=== PATIENT | female | born 1945 | race African-American/Black ===

== ENCOUNTER 2016-07-29 10:23 | Inpatient (IN) | payer MEDICARE ==
--- NOTE | ~2016-07-29 | EKG ---
PATIENT: KODY KAPOOR UNIT #: [id number] Ventricular Rate: 106 BPM Atrial Rate: 106 BPM P-R Interval: 152 ms QRS Duration: 62 ms Q-T Interval: 332 ms QTC Calculation(Bezet): 441 ms P [place]: 63 degrees Calculated R [place]: 48 degrees Calculated T [place]: 70 degrees Diagnosis Line: Sinus tachycardia Diagnosis Line: Low voltage QRS Diagnosis Line: Cannot rule out Anterior infarct , age Diagnosis Line: undetermined Diagnosis Line: Abnormal ECG Diagnosis Line: No previous ECGs available Diagnosis Line: Confirmed by BRADLEY HERNANDEZ MD ([id number]) on 07/29/2016 Diagnosis Line: 10:21:30 PM INTERPRETING MD: MARY ANGULO
--- NOTE | ~2016-07-29 | CR72 ---
[facility] A Service of [facility] RADIOLOGY TEXT RESULTS PATIENT: KODY KAPOOR LOCATION: [address]05-09 : [birth year] UNIT #: [id number] AGE: [address]: Rufus Cooley MD SEX: F ORDER DR: [id number] [facility] [address]. [place], [place] [address] [id number] I MR#: [id number] Acc #: [id number] NAME: KODY KAPOOR : 1945 SEX: F STUDY DATE/TIME: 07/30/2016 4:34 UNIT: [facility] ROOM: [facility] STUDY DESCRIPTION: CR Chest Single View Portable Attending Physician: Shantelle Heart M.D. Ordering Physician: Shantelle Heart M.D. Primary Care Physician: [facility] MEDICAL IMAGING REPORT This report is preliminary unless electronic signature is present EXAM AP portable chest 07/30/2016 HISTORY Lung cancer. Shortness of air and cough. Follow up cardiopulmonary status. FINDINGS Left side chest drain is in place, there is no visible pneumothorax. Patchy infiltrate throughout both lungs and probable bilateral pleural effusions. Chronic opacification and volume loss at the left lung apex likely representing post treatment changes from the patient's history of known lung cancer, best seen on an older exam performed on 08/04/2014. Central venous port catheter in good position. No significant change since yesterday. IMPRESSION Stable portable chest radiograph, unchanged since yesterday. Dictated by... Brian Kohler M.D. THIS IS AN ELECTRONICALLY VERIFIED REPORT Brian Kohler M.D. at 07/30/2016 9:53 PM ISRAEL/felicitas TD: 07/30/2016 06:54 JOB #: [id number] MEDICAL IMAGING REPORT Page 1 of 1 COPY
--- NOTE | ~2016-07-29 | DS ---
Unit #: [id number] #: [id number] Patient: KODY KAPOOR [id number] [address] [place], [place] [address] [id number] I MR#: [id number] NAME: KODY KAPOOR ROOM: 569 Age: 70 Sex: F Admission Date: 07/29/2016 : 1945 Discharge Date: 08/02/2016 Attending Physician: Rufus Cooley M.D. Primary Care Physician: [facility] DISCHARGE SUMMARY ADMITTING DIAGNOSES 1. Shortness of breath. 2. Acute hypoxic respiratory failure. 3. Sepsis with pseudomonas pneumonia. 4. Metastatic uiu-npjsd-ymxf lung carcinoma. 5. History of recurrent pleural effusions with Pleurx catheter in place. 6. History of chronic obstructive pulmonary disease. 7. History of lung cancer. 8. History of malnutrition, mild to moderate. CONSULTANTS Dr. Bonds. HISTORY OF PRESENT ILLNESS The patient is a 70-year-old lady with a past medical history of metastatic spx-fmjwi-ilnf lung cancer carcinoma of the lung, history of chronic obstructive pulmonary disease, recurrent pleural effusions and anemia. The patient usually goes to the [facility]. She was brought to the emergency room on the with an acute episode of shortness of breath. HOSPITAL COURSE Initially she was on a 100% nonrebreather mask and was found to have bilateral airspace opacities on the imaging. She was started on antimicrobials for healthcare associated pneumonia. She was initially admitted to the ICU and gradually was clinically improving. She was moved to telemetry. She is still on antimicrobials and her oxygen requirements have come down to baseline of 3 liters. She is a full code. Dr. Bonds evaluated the patient in the hospital course and she is doing clinically better. She is eager to go home. Will request for her to follow up with oncology at the [facility] as an outpatient. Because of the pseudomonas she will be on IV cefepime for a total of 10 days. PHYSICAL EXAMINATION VITALS: On the day of discharge, temperature 98.2, pulse 79, respiratory rate 18, blood pressure 111/61. GENERAL: The patient is thin, alert, and oriented times three. HEENT: Normocephalic, atraumatic. No icterus. Pupils equally round and reactive to light and accommodation. Extraocular muscles intact. NECK: Supple. No jugular venous distension. HEART: S1 and S2. Regular rate and rhythm. CHEST: Bilateral equal entry. Bilateral equal rhonchi. She does have Unit #: [id number] #: [id number] Patient: KODY KAPOOR bilateral Pleurx catheters in place. ABDOMEN: Soft and nontender. EXTREMITIES: No edema. Normal pulses. SKIN: She does have a port in place. DISCHARGE MEDICATIONS 1. Cefepime 2 g IV q.12 h. for a total of 10 days. 2. Spiriva 18 mcg inhalation daily. 3. Claritin 10 mg daily. 4. Protein supplement required 60 ml b.i.d. 5. Metoprolol 25 mg p.o. daily. 6. Lasix 20 mg daily. 7. Probiotic 50 mg p.o. b.i.d. 8. Protonix 40 mg daily. 9. Albuterol inhalation q.i.d. 10. ProAir 1 puff q.i.d. 11. Tylenol p.r.n. 12. Flunisolide 2 puffs b.i.d. 13. Medrol Dosepak. FOLLOWUP She is instructed to follow up with oncology and with pulmonary as an outpatient. Total time spent in her care 35 minutes. Dictated by..Pernell Sneed TD: 08/02/2016 13:31 JOB #: [id number] DISCHARGE SUMMARY Page 1 of 1 X X DISCHARGE SUMMARY
--- NOTE | ~2016-07-29 | US84 ---
[id number] [facility] [address] [place], [place] [address] [id number] I MR#: [id number] Acc #: [id number] NAME: KODY KAPOOR : 1945 SEX: F STUDY DATE/TIME: 07/31/2016 18:48 UNIT: [facility] ROOM: 569 STUDY DESCRIPTION: US LE Veins Complete Julian Stdy Attending Physician: Rufus Cooley M.D. Ordering Physician: Rufus Cooley M.D. Primary Care Physician: [facility] MEDICAL IMAGING REPORT This report is preliminary unless electronic signature is present EXAM Bilateral lower extremity venous ultrasound. HISTORY Shortness of air for 4 days. TECHNIQUE Venous ultrasound examination of both lower extremities was performed using grayscale, spectral Doppler and color flow Doppler imaging. FINDINGS The examination is negative. There is no evidence of deep venous thrombus from the groin to the lower calf bilaterally. Visualized greater saphenous veins are also patent. IMPRESSION Negative examination. No evidence of lower extremity DVT. Dictated by... Dread Horn M.D. THIS IS AN ELECTRONICALLY VERIFIED REPORT Dread Horn M.D. at 08/01/2016 8:50 PM HEIDY/vladimir TD: 07/31/2016 21:48 JOB #: [id number] MEDICAL IMAGING REPORT Page 1 of 1 COPY
--- NOTE | ~2016-07-29 | CT15 ---
[facility] A Service of [facility] RADIOLOGY TEXT RESULTS PATIENT: KODY KAPOOR LOCATION: [facility] 5612-06 : [birth year] UNIT #: [id number] AGE: [address]: Rufus Cooley MD SEX: F ORDER DR: [id number] [facility] [address] [place], [place] [address] [id number] I MR#: [id number] Acc #: [id number] NAME: KODY KAPOOR : 1945 SEX: F STUDY DATE/TIME: 07/31/2016 9:25 UNIT: [facility] ROOM: [facility] STUDY DESCRIPTION: CT Angio Chest Attending Physician: Rufus Cooley M.D. Ordering Physician: Casper Bonds M.D. Primary Care Physician: [facility] MEDICAL IMAGING REPORT This report is preliminary unless electronic signature is present EXAM Chest CT angiogram with contrast DATE OF EXAMINATION 07/31/2016 PROCEDURE Axial contrast enhanced chest CT angiogram with [address] exam was performed with one or more of the following radiation dose reduction techniques: automatic exposure control, adjustment of mA and/or kV according to patient size, and iterative reconstruction. HISTORY Short of air and wheezing and cough for 2 days. COMPARISON STUDIES Chest CT angiogram dated 12/12/2009 FINDINGS There are extensive coarse pulmonary infiltrates and areas of consolidation. There is also some fluid partially loculated in the right major and minor fissures. There is a small to moderate pericardial effusion. The thoracic aorta is normal in caliber. Pulmonary arteries are well opacified and there is no evidence of pulmonary embolism. There is mild to moderate narrowing at or just beyond the celiac origin. Right renal artery origin is normal and the left is not included on the exam. Great vessel origins from the arch are widely patent. IMPRESSION [facility] A Service of [facility] RADIOLOGY TEXT RESULTS PATIENT: KODY KAPOOR LOCATION: [facility] 5612-06 : [birth year] UNIT #: [id number] AGE: [address]: Rufus Cooley MD SEX: F ORDER DR: 1. While there are extensive pulmonary parenchymal changes the thoracic aorta is normal in caliber and there is no evidence of pulmonary embolism. 2. Chronic left hilar mass/deformity with what appears to be left upper lobe chronic post obstructive change, similar to what was seen in July 2014, is redemonstrated, and there are extensive changes in the right lung with areas of interstitial infiltrate and even mass like consolidation in the apex, as well as a right hilar mass measuring about 1.9 x 1.5 cm. There is also fluid loculated in the right major and minor fissure and there are coarse infiltrative changes in the lung bases bilaterally. Given the lack of interval CT examinations of the chest, it is unclear to what degree the changes are acute or chronic. Again, the thoracic aorta is normal. The branch vessels are widely patent though in the upper abdomen there is moderate stenosis at the celiac origin. There is also moderate narrowing of the left main pulmonary artery but that appears to be a chronic finding as well. There is no pneumothorax. There is no acute bony abnormality. Dictated by... Rishabh Rooney M.D. THIS IS AN ELECTRONICALLY VERIFIED REPORT Rishabh Rooney M.D. at 08/01/2016 3:51 PM SAUL/morelia TD: 07/31/2016 17:34 JOB #: [id number] MEDICAL IMAGING REPORT Page 1 of 1 COPY
--- NOTE | ~2016-07-29 | CO ---
Unit #: [id number] #: [id number] Patient: KODY KAPOOR [id number] [address] [place], [place] [address] [id number] I MR#: [id number] NAME: KODY KAPOOR ROOM: [facility] Age: 70 Sex: F Admission Date: 07/29/2016 : 1945 Attending Physician: Shantelle Heart M.D. Primary Care Physician: [facility] CONSULTATION REPORT JOB NOTE: CC: [facility], [facility]. REASON FOR CONSULTATION Respiratory failure. HISTORY OF PRESENT ILLNESS The patient is a 70-year-old female, who looks older than stated age, who has a history of metastatic non-small cell carcinoma of the lung, treated at [facility]. Apparently, she has undergone relatively recent treatment including chemotherapy about 6 weeks ago. She has known bilateral malignant pleural effusions with bilateral PleurX catheters in. According to the EHR, she presented with 2- to 3-day history of shortness of breath and cough. Saturations were quite low on her 3 L that she was apparently on at the group home. She currently is on mask ventilation. It is difficult for her to answer questions, but I am not sure if her history would be reliable. She has had shortness of breath, some cough. She nods yes to wheezing. She denies sputum production, fever, chest pain, or hemoptysis, but again history is somewhat difficult to obtain. PAST MEDICAL HISTORY Remarkable for apparent recent pneumonia 3 or 4 weeks ago in [facility]; chronic respiratory failure, on 2 to 3 L; metastatic non-small cell carcinoma of lung, status post radiation and chemotherapy with bilateral PleurX catheters for malignant effusions; history of COPD; chronic anemia. MEDICATIONS According to the med rec sheet include Claritin, metoprolol, Lasix, potassium, Spiriva, albuterol, ProMod protein supplement, nasal sprays, probiotics, Mini-nebs, and inhaled bronchodilators. ALLERGIES Penicillin, clindamycin, ciprofloxacin, unknown reaction. SOCIAL HISTORY Quit smoking a few weeks ago. FAMILY HISTORY According to the EHR, no familial lung disease. REVIEW OF SYSTEMS Basically, it is unobtainable in a reliable fashion. She does ask when she can eat. She denied chest pain, abdominal pain, melena, hematochezia, leg pain, swelling, but again very difficult to obtain a review of systems. Unit #: [id number] #: [id number] Patient: KODY KAPOOR PHYSICAL EXAMINATION VITAL SIGNS: Reveals a patient who is afebrile, pulse 90, respiratory rate is 24, blood pressure is 99/73. She is 5 feet 1 inch and 129 pounds. HEENT: Pupils equal, round, and reactive to light. Sclerae anicteric. Head atraumatic. NECK: Supple. She is bald. Jugular venous pressures appear to be increased. CHEST: Expiratory rhonchi. No definite consolidation. Posterior auscultation not performed. CARDIAC: Reveals regular rate and rhythm. Distant heart tones. No murmur, rub, or gallop. ABDOMEN: Soft and nontender. No hepatomegaly or rebound. EXTREMITIES: Reveal no clubbing, cyanosis. There is 2+ edema. No calf tenderness. SKIN: Warm and dry without rash or diaphoresis. NEUROLOGIC: No definite focal motor or sensory deficits, but she did not cooperate with a full neurologic exam. DIAGNOSTIC STUDIES LABORATORY RESULTS: Arterial blood gas; pH is 7.33, pCO2 of 71, pO2 of 93 on a non-rebreather. Her BUN is 10, creatinine is 0.3, magnesium 1.5. Procalcitonin is only 0.07. Lactic acid 0.7. I did not see a BNP. INR was normal. Cardiac enzymes normal. White blood cell count 8.9, hemoglobin 10.1, platelet count 285. Blood cultures performed and are pending. CARDIOVASCULAR STUDIES: EKG; sinus tachycardia, nonspecific ST-T wave changes. Chest x-ray; bilateral interstitial mcclain, bilateral pleural effusions, possible fluid in the fissure on the right, cannot rule out mass. IMPRESSION 1. Respiratory failure, acute on chronic, not convinced she has pneumonia. No fever, leukocytosis, or elevated procalcitonin level. 2. Abnormal chest x-ray consistent with congestive heart failure. 3. Bilateral pleural effusions, known to be malignant, possible component of heart failure. 4. Metastatic non-small cell carcinoma of the lung. 5. Chronic obstructive pulmonary disease. 6. Anemia. 7. Hypomagnesemia and medical problems listed above. PLAN Overall prognosis is guarded. Continue noninvasive mask ventilation for now, treatment of her COPD with steroids, nebulized bronchodilators. Antibiotics for now for pneumonia, but I will discontinue her tobramycin. I am not convinced that she has pneumonia and I do not think she is at increased pseudomonas risk. Trial of diuretics and re-evaluate in the morning. Given her metastatic cancer, I would consider goals of care and DNR status. Thank you very much for allowing me to participate in the care of Ms. Kapoor. Dictated by... Casper Bonds M.D. Unit #: [id number] #: [id number] Patient: KODY KAPOOR CHARLEY/lilianel TD: 07/30/2016 01:31 JOB #: [id number] CONSULTATION REPORT Page 1 of 1 X Casper Bonds MD X CONSULTATION REPORT
--- NOTE | ~2016-07-29 | HP ---
Unit #: [id number] #: [id number] Patient: KODY KAPOOR [id number] [facility] [address] [place], [place] [address] [id number] MR#: [id number] NAME: KODY KAPOOR ROOM: Age: 70 Sex: F Admission Date: 07/29/2016 : 1945 Attending Physician: Elvis Lyles M.D. Primary Care Physician: Arlen Dixon [facility] HISTORY AND PHYSICAL CHIEF COMPLAINT Short of air. HISTORY OF PRESENT ILLNESS The patient is a 70-year-old female with past medical history of metastatic non-small cell carcinoma of the lung, COPD, recurrent pleural effusions and anemia who presented to the emergency department from the [facility] for evaluation of the above. The patient has apparently had a 2- to 3-day history of increasing shortness of breath and productive cough. She denies any chest pain. No fever. She states that her appetite has been okay. She denies any vomiting or diarrhea. No urinary symptoms. The patient's oxygen saturations were reportedly 78% on 3 liters at the [facility]. Upon arrival in the emergency department, the patient's oxygen saturation was 100% on 100% non-rebreather, pulse 108, respirations 28. Chest x-ray shows diffuse bilateral airspace changes with moderate bilateral pleural effusions. She was given cefepime, tobramycin and vancomycin in the emergency department, as well as Solu-Medrol. She is being admitted to [facility] for evaluation and further treatment. PAST MEDICAL HISTORY 1. Admission to [facility] 3-4 weeks ago for pneumonia (no records). 2. Chronic respiratory failure, on 2-3 liters of oxygen per nasal cannula continuous. 3. History of metastatic non-small cell lung cancer status post radiation and chemotherapy. The patient's son, who is at bedside, thinks that her last chemotherapy was about 6 weeks ago. Last radiation was possibly more than a year ago. She is followed by the [facility]. The patient has had recurrent malignant effusions and had bilateral Pleurx catheters in the past. 4. COPD. 5. Chronic anemia. PAST SURGICAL HISTORY 1. Port placement. 2. . SOCIAL HISTORY The patient currently is at rehab. She quit smoking a few weeks ago. CODE STATUS Unit #: [id number] #: [id number] Patient: KODY KAPOOR Full code. FAMILY HISTORY Notable for there being no familial lung disease. ALLERGIES Penicillin, clindamycin, ciprofloxacin. HOME MEDICATIONS 1. Claritin 10 mg daily. 2. Metoprolol 25 mg daily. 3. Lasix 20 mg daily. 4. Potassium 10 mEq daily. 5. Spiriva inhaled daily. 6. Albuterol inhaled q.i.d. 7. Protein supplement b.i.d. 8. Flunisolide 2 puffs nasally b.i.d. 9. Probiotic 250 mg b.i.d. 10. Tylenol 650 q.6 hours p.r.n. 11. DuoNeb q.4 hours p.r.n. 12. Albuterol q.i.d. REVIEW OF SYSTEMS A complete review of systems is negative except as indicated in the HPI. PHYSICAL EXAMINATION VITAL SIGNS: Temperature is 98, pulse 108, respirations 28, blood pressure 128/87, oxygen saturation 100% on 100% non-rebreather. Saturations were reportedly 78% on 3 liters at the [facility]. GENERAL: The patient is an female who is sleeping but wakes to physical stimuli. HEENT: The head is atraumatic. Mucous membranes are moist. NECK: Supple. Trachea is midline. CARDIOVASCULAR: Tachycardic in the one-teens. RESPIRATORY: Lungs demonstrate scattered crackles and rhonchi. Breathing is mildly labored. She is currently on 100% non-rebreather. ABDOMEN: Soft, nontender with bowel sounds present in all 4 quadrants. EXTREMITIES: Extremities are nontender with no pedal edema. NEUROLOGIC: The patient is oriented to person and place. She is unable to tell me the year. The patient follows commands. PSYCHIATRIC: Mood and affect are normal. The patient is cooperative. SKIN: Skin of examined areas is warm and dry. DIAGNOSTIC TESTS CARDIOVASCULAR: EKG shows sinus tachycardia with a rate of 106 beats per minute. IMAGING: Chest x-ray shows cardiomegaly with diffuse bilateral airspace changes and moderate bilateral pleural effusions. LABORATORY: INR is 1.1. Complete blood count notable for hemoglobin and hematocrit of 10.1 and 32.6 respectively. Troponin is less than 0.05. Lactic acid is 0.5. Comprehensive metabolic panel notable for chloride of 96, bicarb 35, glucose 139, alkaline phosphatase 98, albumin 2.8. Amylase and lipase are normal. Magnesium is 1.5. ASSESSMENT 1. The patient is a 70-year-old female with acute on chronic respiratory Unit #: [id number] #: [id number] Patient: KODY KAPOOR failure. 2. Healthcare-associated pneumonia. The patient received vancomycin, tobramycin and cefepime in the emergency department. 3. History of metastatic non-small cell lung cancer with last chemotherapy approximately 6 weeks ago, followed by the [facility]. 4. Bilateral pleural effusions. The patient has a history of recurrent malignant pleural effusion and has had Pleurx catheter in the past 5. COPD exacerbation. The patient received Solu-Medrol in the emergency department. 6. Hypomagnesemia. 7. Normocytic anemia. The patient's hemoglobin is 10.1 today with no baseline for comparison. 8. Former smoker. Immobility. The patient is currently in rehab. PLAN 1. Admit to intermediate level. 2. NPO until stable. 3. Check ABG. 4. Consult Dr. Bonds regarding acute on chronic respiratory failure. 5. Blood cultures x2. 6. Sputum culture and sensitivity. 7. Procalcitonin level. 8. Streptococcal and Legionella urine antigens. 9. Sepsis protocol with repeat lactic acid. 10. Vancomycin IV, tobramycin IV and cefepime IV for healthcare-associated pneumonia pending further workup. 11. DuoNeb q.4 hours while awake and q.2 hours p.r.n. 12. Solu-Medrol 80 mg IV q.12 hours. 13. Get records from [facility]. 14. Potassium/magnesium protocol. 15. Serial cardiac enzymes. 16. Neuro checks. 17. Fall precautions. 18. Protonix for GI prophylaxis since the patient will be on Solu-Medrol. 19. SCDs for DVT prophylaxis. 20. Repeat labs in the morning, including magnesium. 21. Additional workup and consultants based on above. 22. Regarding code status, the patient is a full code. Dictated by Pernell Jennings/aislinn TD: 07/29/2016 13:13 JOB #: [id number] Unit #: [id number] #: [id number] Patient: BESSIESHAKEELDAVIDKODY HISTORY AND PHYSICAL Page 1 of 1 X Shantelle Heart MD X HISTORY AND PHYSICAL
[2016-07-29 09:42] LABS: BASOPHIL% 0.4 % (0-2.5); EOSINOPHIL% 0.1 % (0.0-7.0); HEMATOCRIT 32.6 % (35.0-45.0); HEMOGLOBIN 10.1 gm/dL (12.0-16.0); LYMPHOCYTE# 0.3 X10e3 (1.0-3.5); LYMPHOCYTE% 3.6 % (17.0-45.0); MEAN CELL VOLUME 83.7 FL (83-96); MEAN CORPUSCULAR HGB CONC 31.1 g/dL (30-36); MEAN PLATELET VOLUME 7.4 FL (6.5-11.5); MONOCYTE# 0.6 X10e3 (0-1.0); MONOCYTE% 6.8 % (3.0-12.0); NEUTROPHIL# 7.9 X10e3 (1.5-7.1); NEUTROPHIL% 89.1 % (40-75); PLATELET COUNT 285 X10e3 (140-420); WHITE BLOOD COUNT 8.9 X10e3 (4.0-10.5)
[2016-07-29 09:49] LABS: DIFF IND NO
[2016-07-29 09:56] LABS: POC - CKMB 1.5 ng/mL (0.0-7.9); POC - TROPONIN <0.05 ng/mL (<=0.05)
[2016-07-29 09:57] LABS: INR 1.1; PARTIAL THROMBOPLASTIN TIME 26.6 SECONDS (23.5-31.3); PROTHROMBIN TIME (PATIENT) 11.4 SECONDS (9.6-11.5)
[2016-07-29 10:08] LABS: ALBUMIN SERUM 2.7 g/dL (3.5-5.0); ALKALINE PHOSPHATASE 98 U/L (32-92); ALT (SGPT) 12 U/L (10-40); AMYLASE 11 U/L (0-46); AST (SGOT) 15 U/L (10-42); BILIRUBIN, DIRECT <0.1 mg/dL (0.0-0.2); BILIRUBIN,INDIRECT 0.2 mg/dL (0.0-0.9); BILIRUBIN,TOTAL 0.3 mg/dL (0.2-2.0); BLOOD UREA NITROGEN 10 mg/dL (9-23); BUN/CREATININE RATIO 33.33; CALCIUM SERUM 8.6 mg/dL (8.4-10.2); CARBON DIOXIDE 35 mmol/L (22-31); CHLORIDE 96 mmol/L (100-111); CREATININE SERUM 0.3 mg/dL (0.6-1.4); GLOM FILT RATE Estimated 117.7 mL/min (>60); GLUCOSE FASTING 139 mg/dL (70-110); LIPASE 12 U/L (22-51); MAGNESIUM 1.5 mg/dL (1.6-3.0); PHOSPHOROUS 4.5 mg/dL (2.5-4.6); POTASSIUM 4.1 mmol/L (3.5-5.1); PROTEIN TOTAL SERUM 6.8 g/dL (6.0-8.3); SODIUM 139 mmol/L (135-145)
[~2016-07-29 10:23] MED LIST: ALBUTEROL2.5 MG/3 M INH; CLARITIN10 M3 PO; FLUNISOLIDE25 ML; LASIX20 MG PO; METOPROLOL SUCC25 MG PO; POTASSIUM CHLO10 MEQ PO; PROMOD946 ML PO; SPIRIVA18 MCG INH
[2016-07-29] MEDS ORDERED: TYLENOL325 M1 PO (11:30)
[2016-07-29] MEDS ORDERED: PROBIOTIC250 MG PO (11:30)
[2016-07-29] MEDS ORDERED: IPRATR-ALBUTEROL3 ML INH (11:32)
[2016-07-29] MEDS ORDERED: PROAIR RESPICL90 MCG INH (11:33)
[2016-07-29 11:39] LABS: POC - CKMB 2.2 ng/mL (0.0-7.9); POC - TROPONIN <0.05 ng/mL (<=0.05)
[2016-07-29 13:13] LABS: ARTERIAL BLD GAS O2 SATURATION 94.5 % (90.0-100.0); ARTERIAL BLOOD GAS CARBOXY HB 1.4 %sat (0.0-9.0); ARTERIAL BLOOD GAS HCO3 37.2 mmol/L; ARTERIAL BLOOD GAS MET HB 0.7 %sat (0.0-2.0); ARTERIAL BLOOD GAS PO2 93.6 mmHg (80.0-100); ARTERIAL BLOOD GAS pH 7.329 (7.350-7.450)
[2016-07-29 13:17] LABS: ARTERIAL BLOOD GAS ALLEN TEST NORMAL; ARTERIAL BLOOD GAS ART SITE RIGHT RADIAL; ARTERIAL BLOOD GAS PCO2 70.7 mmHg (35.0-45.0); ARTERIAL DRAW? YES
[2016-07-29 17:54] LABS: CK TOTAL 16 IU/L (26-140)
[2016-07-29 23:47] LABS: CK TOTAL 15 IU/L (26-140)
[2016-07-30 04:50] LABS: HEMATOCRIT 30.4 % (35.0-45.0); HEMOGLOBIN 9.5 gm/dL (12.0-16.0); MEAN CELL VOLUME 83.7 FL (83-96); MEAN CORPUSCULAR HGB CONC 31.1 g/dL (30-36); RED BLOOD COUNT 3.63 X10e (3.90-5.30); RED CELL DISTRIBUTION WIDTH 19.8 % (11.0-15.5); WHITE BLOOD COUNT 6.4 X10e3 (4.0-10.5)
[2016-07-30 05:09] LABS: ALBUMIN SERUM 2.5 g/dL (3.5-5.0); BILIRUBIN,TOTAL 0.4 mg/dL (0.2-2.0); CALCIUM SERUM 8.7 mg/dL (8.4-10.2); CREATININE SERUM 0.5 mg/dL (0.6-1.4); GLOM FILT RATE Estimated 115.3 mL/min (>60); MAGNESIUM 1.9 mg/dL (1.6-3.0); POTASSIUM 4.7 mmol/L (3.5-5.1); PROTEIN TOTAL SERUM 6.7 g/dL (6.0-8.3)
[2016-07-30 08:18] LABS: ARTERIAL BLD GAS O2 SATURATION 94.5 % (90.0-100.0); ARTERIAL BLOOD GAS CARBOXY HB 1.1 %sat (0.0-9.0); ARTERIAL BLOOD GAS HCO3 39.7 mmol/L; ARTERIAL BLOOD GAS MET HB 0.6 %sat (0.0-2.0); ARTERIAL BLOOD GAS PO2 81.5 mmHg (80.0-100); ARTERIAL BLOOD GAS pH 7.374 (7.350-7.450)
[2016-07-30 08:20] LABS: ARTERIAL BLOOD GAS PCO2 68.1 mmHg (35.0-45.0)
[2016-07-30 08:21] LABS: ARTERIAL BLOOD GAS ALLEN TEST NORMAL; ARTERIAL BLOOD GAS ART SITE RIGHT RADIAL; ARTERIAL BLOOD GAS DELIVERY OXYMISER; ARTERIAL DRAW? YES
[2016-07-31 04:00] LABS: BASOPHIL% 0.1 % (0-2.5); HEMOGLOBIN 9.4 gm/dL (12.0-16.0); LYMPHOCYTE# 0.5 X10e3 (1.0-3.5); LYMPHOCYTE% 5.1 % (17.0-45.0); MEAN CELL VOLUME 83.5 FL (83-96); MEAN CORPUSCULAR HEMOGLOBIN 26.1 PG (28-34); MEAN CORPUSCULAR HGB CONC 31.3 g/dL (30-36); MEAN PLATELET VOLUME 8.6 FL (6.5-11.5); MONOCYTE% 9.6 % (3.0-12.0); NEUTROPHIL# 8.6 X10e3 (1.5-7.1); NEUTROPHIL% 85.2 % (40-75); PLATELET COUNT 264 X10e3 (140-420); RED BLOOD COUNT 3.59 X10e (3.90-5.30); RED CELL DISTRIBUTION WIDTH 19.5 % (11.0-15.5)
[2016-07-31 04:03] LABS: DIFF IND NO; WHITE BLOOD COUNT 10.1 X10e3 (4.0-10.5)
[2016-07-31 04:22] LABS: CALCIUM SERUM 8.3 mg/dL (8.4-10.2); CREATININE SERUM 0.5 mg/dL (0.6-1.4); GLOM FILT RATE Estimated 115.3 mL/min (>60); POTASSIUM 4.2 mmol/L (3.5-5.1)
[2016-08-01 16:18] LABS: MAGNESIUM 1.5 mg/dL (1.6-3.0); PHOSPHOROUS 1.5 mg/dL (2.5-4.6)
[2016-08-02 05:46] LABS: HEMATOCRIT 29.3 % (35.0-45.0); HEMOGLOBIN 9.2 gm/dL (12.0-16.0); MEAN CELL VOLUME 82.6 FL (83-96); MEAN CORPUSCULAR HEMOGLOBIN 25.9 PG (28-34); MEAN CORPUSCULAR HGB CONC 31.4 g/dL (30-36); MEAN PLATELET VOLUME 8.1 FL (6.5-11.5); RED BLOOD COUNT 3.55 X10e (3.90-5.30); RED CELL DISTRIBUTION WIDTH 19.5 % (11.0-15.5); WHITE BLOOD COUNT 5.8 X10e3 (4.0-10.5)
[2016-08-02 06:52] LABS: CALCIUM SERUM 8.4 mg/dL (8.4-10.2); CREATININE SERUM 0.4 mg/dL (0.6-1.4); GLOM FILT RATE Estimated 124.1 mL/min (>60); MAGNESIUM 1.6 mg/dL (1.6-3.0); POTASSIUM 3.2 mmol/L (3.5-5.1)
[2016-08-02] MEDS ORDERED: MEDROL DOSEPAK4 MG PO (16:27)
[2016-08-02] MEDS ORDERED: CEFEPIME-D2 GM/50 ML IV (16:29)
== END 2016-08-02 18:40 | disposition home health service (06) | DRG 871 ==
LOC: CED 10:23 → CEDOF 12:45 → CICCU2 20:30 → C5C 07-31 15:33
PROVIDERS: Emergency Medicine; Family Medicine; Internal Medicine
PROC: B246ZZZ Ultrasonography of Right and Left Heart (ICD-10-PCS; principal; 2016-07-30)
PROC: B32SYZZ Computerized Tomography (CT Scan) of Right Pulmonary Artery using Other Contrast (ICD-10-PCS; 2016-07-31)
PROC: B32TYZZ Computerized Tomography (CT Scan) of Left Pulmonary Artery using Other Contrast (ICD-10-PCS; 2016-07-31)
DX: A41.52 Sepsis due to Pseudomonas (principal); J96.21 Acute and chronic respiratory failure with hypoxia; J15.1 Pneumonia due to Pseudomonas; J91.0 Malignant pleural effusion; I27.2 Other secondary pulmonary hypertension; J44.0 Chronic obstructive pulmonary disease with (acute) lower respiratory infection; C34.92 Malignant neoplasm of unspecified part of left bronchus or lung; R13.11 Dysphagia, oral phase; J44.1 Chronic obstructive pulmonary disease with (acute) exacerbation; Z92.3 Personal history of irradiation; D64.9 Anemia, unspecified; Z87.891 Personal history of nicotine dependence; Z88.0 Allergy status to penicillin; Z88.1 Allergy status to other antibiotic agents; E83.42 Hypomagnesemia; K22.4 Dyskinesia of esophagus; R13.13 Dysphagia, pharyngeal phase
CPT/HCPCS: 36415; 36600; 71010; 71275; 74230; 80048; 80053; 80076; 82150; 82308; 82550; 82553; 82803; 83605; 83690; 83735; 83880; 84100; 84484; 85025; 85027; 85610; 85730; 87040; 87070; 87077; 87186; 87205; 87449; 87899; 92526; 92610; 92611; 93005; 93306; 93308; 93970; 94640; 94660; 94760; 97110; 97116; 97162; 97166; 97530; 97535; 99285; C9113; G8978-GP; G8979-GO; G8979-GP; G8980-GO; G8980-GP; G8987-GO; G8988-GO; G8996-GN; G8997-GN; G8998-GN; J0692; J0696; J1650; J2920; J2930; J3260; J3370; J3475; Q9967